=== PATIENT | female | born 1995 | race Caucasian/White ===

== ENCOUNTER 2017-08-04 14:23 | Emergency (ER) | payer OTHER, SELFPAY | END 2017-08-04 14:46 | disposition home or self-care (01) | LOC: ERS 14:23 | DX: O99.511 Diseases of the respiratory system complicating pregnancy, first trimester (principal); J00 Acute nasopharyngitis [common cold]; O99.341 Other mental disorders complicating pregnancy, first trimester; F41.9 Anxiety disorder, unspecified; Z87.891 Personal history of nicotine dependence; Z3A.12 12 weeks gestation of pregnancy | CPT/HCPCS: 99283 ==

== ENCOUNTER 2018-01-12 13:05 | Day surgery (SDC) | payer OTHER ==
[2018-01-12 14:17] VITALS: BMI 34.5
[2018-01-12 14:53] LABS: Amnisure Test No Membranes Rupture (No Rupture)
[2018-01-12 14:54] LABS: Amnisure Internal Control QC ACCEPTABLE (ACCEPTABLE)
--- NOTE | 2018-01-13 00:37 | SS ---
DATE OF SERVICE: 01/12/2018 REGULAR PHYSICIAN: Madhu Fong M.D. EVALUATING PHYSICIAN: Endy Watson M.D. CHIEF COMPLAINT "Lost my mucus plug." HISTORY OF PRESENT ILLNESS: Ms. Cabrera is a 22-year-old white G1, P0 with an estimated date of confi nement of 02/07/2018 who presents complaining of what she believed to be her mucus plug at approximat gerardo 1:00 a.m. this morning. She denies a specific loss of fluid, contractions or vaginal bleeding. Her care has been with Dr. Fong and she says it has been without complications. PAST MEDICAL HISTORY: None. PAST SURGICAL HISTORY: None. CURRENT MEDICATIONS: vitamins. ALLERGIES: No known allergies. SOCIAL HISTORY: She denies tobacco, alcohol, or drug use. PHYSICAL EXAMINATION: VITAL SIGNS: Stable. She is afebrile. ABDOMEN: Soft, nontender and gravid. PELVIC: By her labor nurse shows the cervix to be closed and long. An AmniSure obtained prior to th e exam returns negative. heart rate tracing is stable with no decelerations. Intermittent irr itability seen, but no contractions are noted. ASSESSMENT: 1. A 36 week intrauterine . 2. No evidence of ruptured membranes or active labor. PLAN: The patient will be discharged to home with complete labor precautions. She voices understand ing of her discharge instructions. She states that she has an appointment with Dr. Fong on 01/17/20 18.
== END 2018-01-12 15:11 | disposition home or self-care (01) ==
LOC: L&D/OP 13:05
PROVIDERS: ATTEND Family Medicine
DX: O47.03 False labor before 37 completed weeks of gestation, third trimester (principal); Z3A.36 36 weeks gestation of pregnancy; Z79.899 Other long term (current) drug therapy
CPT/HCPCS: 84112; 99282

== ENCOUNTER 2018-06-17 20:17 | Emergency (ER) | payer OTHER ==
[~2018-06-17 20:17] MED LIST: Iopamidol 370 76% 100 ML VIAL ONE; Iopamidol 370 76% 50 ML VIAL FS ONE
[2018-06-17 21:32] LABS: Bilirubin Negative (Negative); Blood, Urine Negative (Negative); Clarity CLEAR (Clear); Glucose, Urine (Dipstick) Negative (Negative); Leukocyte Negative (Negative); Nitrite Negative (Negative); Protein, Urine (Dipstick) Negative (Neg-Trace); Specific Gravity, Urine 1.012 (1.002-1.036); Urobilinogen 0.2 mg/dL (0.2-1.0); pH, Urine 6.5 (5.0-9.0)
[2018-06-17 21:33] LABS: Pregnancy Test - Urine (BHCG) Negative (Negative); Pregu Control Background? CLEAR/WHITE (CLR/WHITE); Pregu Control Bar Appear? YES (CONTROL BAR); Specific Gravity 1.012 (1.002-1.036)
[2018-06-17 21:47] LABS: #Eosinphils 0.1 thou/uL (0.0-0.7); #Lymphocytes 2.2 thou/uL (1.20-3.40); #Monocytes 0.4 thou/uL (0.11-0.59); #Neutrophils 4.6 thou/uL (1.40-6.50); %Basophils 0.6 % (0.0-1.0); %Lymphocytes 29.3 % (21.0-51.0); %Monocytes 5.4 % (0.0-10.0); %Neutrophils 62.8 % (42.0-75.0); Hemoglobin 13.3 g/dL (12.0-16.0); Mean Corpuscular HGB CONC 32.5 g/dL (32.0-36.0); Mean Corpuscular Volume 79.9 fL (78.0-98.0); Mean Platelet Volume 9.1 fL (7.4-10.4); Platelet Count 393 thou/uL (130-400); RBC Distribution Width 16.2 % (11.5-14.5); Red Blood Cell (RBC) Count 5.11 mill/uL (4.20-5.40); White Blood Cell (WBC) Count 7.3 thou/uL (4.8-10.8)
[2018-06-17 22:11] LABS: ALT (SGPT) 12 U/L (8-55); AST (SGOT) 13 U/L (5-34); Albumin 4.5 g/dL (3.5-5.0); Alkaline Phosphatase 97 U/L (40-150); Anion Gap 12 mmol/L (10-20); BUN (Urea Nitrogen) 7 mg/dL (7.0-18.7); Bilirubin, Total Less than 0.2 mg/dL (0.2-1.2); Calc. Creatinine Clearance 0 mL/min (70-130); Calcium 9.5 mg/dL (7.8-10.44); Carbon Dioxide 22 mmol/L (22-29); Chloride 108 mmol/L (98-107); Estimated GFR-MDRD Greater than 90; Globulin 3.4 g/dL (2.4-3.5); Glucose 103 mg/dL (70-105); Lipase 24 U/L (8-78); Potassium 3.8 mmol/L (3.5-5.1); Protein, Total 7.9 g/dL (6.0-8.3); Sodium 138 mmol/L (136-145)
--- NOTE | 2018-06-18 00:21 | CT ---
CT OF ABDOMEN AND PELVIS PERFORMED WITH INTRAVENOUS CONTRAST ENHANCEMENT: 06/17/18 HISTORY: Generalized abdominal pain. Lung bases are clear. The liver, spleen, pancreas, and gallbladder regions appear unremarkable. Right and left adrenal glands and right and left kidneys are normal in appearance. No significant per iaortic or mesenteric adenopathy. CT OF PELVIS PERFORMED WITH CONTRAST ENHANCEMENT: The appendix is normal. There is an IUD present. The IUD is a T-shaped IUD. One side of the T actuall y extends through the myometrium outside the uterus. It is along the anterior uterine wall and this c omponent of the T directly abuts the bladder. The remainder of the IUD may be entirely within the vj metrium but a portion may be in the endometrium. Follicles are seen involving the adnexa. No free flu id. IMPRESSION: 1. Abnormal position of the IUD as discussed above. 2. Normal appendix. 3. Findings discussed with Dr. Toro. POS: [facility]
== END 2018-06-18 00:15 | disposition home or self-care (01) ==
LOC: ERS 20:17
DX: R10.9 Unspecified abdominal pain (principal); R19.7 Diarrhea, unspecified; F41.9 Anxiety disorder, unspecified; F17.210 Nicotine dependence, cigarettes, uncomplicated; Z79.899 Other long term (current) drug therapy
CPT/HCPCS: 36415; 74177; 80053; 81003; 81025; 83690; 85025

== ENCOUNTER 2018-10-15 06:20 | Emergency (ER) | payer OTHER, SELFPAY ==
[2018-10-15] MEDS ORDERED: Ibuprofen 800 MG TAB ONE (07:56)
== END 2018-10-15 08:08 | disposition home or self-care (01) ==
LOC: ERS 06:20
DX: S16.1XXA Strain of muscle, fascia and tendon at neck level, initial encounter (principal); F41.9 Anxiety disorder, unspecified; F17.210 Nicotine dependence, cigarettes, uncomplicated; X58.XXXA Exposure to other specified factors, initial encounter
CPT/HCPCS: 99283

== ENCOUNTER 2022-10-19 17:53 | Emergency (ER) | payer OTHER | END 2022-10-19 18:50 | disposition home or self-care (01) | LOC: ERS 17:53 | DX: K04.7 Periapical abscess without sinus (principal); K02.9 Dental caries, unspecified; F17.210 Nicotine dependence, cigarettes, uncomplicated | CPT/HCPCS: 99282 ==

== ENCOUNTER 2023-03-10 10:45 | Emergency (ER) | payer OTHER | END 2023-03-10 12:48 | disposition home or self-care (01) | LOC: ERS 10:45 | DX: R05.9 Cough, unspecified (principal); J32.9 Chronic sinusitis, unspecified; Z87.891 Personal history of nicotine dependence | CPT/HCPCS: 71045 ==

== ENCOUNTER 2024-04-22 17:18 | Emergency (ER) | payer OTHER ==
[2024-04-22] MEDS ORDERED: Ketorolac Tromethamine 30 MG (1 mL) VIAL ONE (17:45)
== END 2024-04-22 17:57 | disposition home or self-care (01) ==
LOC: ERS 17:18
DX: K02.9 Dental caries, unspecified (principal); Z87.891 Personal history of nicotine dependence
CPT/HCPCS: 96372; 99282; J1885